=== PATIENT | female | born 1970 | race Caucasian/White ===

== ENCOUNTER 2016-06-21 01:44 | Emergency (ER) | payer BC ==
[~2016-06-21] VITALS: Ht 157.5 cm; Wt 61.8 kg
[~2016-06-21 01:44] MED LIST: NO HOME MEDICATIONS
[2016-06-21 01:47] VITALS: TEMP 98
[2016-06-21] MEDS ORDERED: ZOLOFT 100MG100 MG PO (01:50)
[2016-06-21] MEDS ORDERED: HCTZ12.5TAB PO (01:50)
[2016-06-21] MEDS ORDERED: NORCO 325 MG-51 TAB PO (02:45)
[2016-06-21 03:10] VITALS: BP 168/84; PULSE 79
== END 2016-06-21 03:10 | disposition home or self-care (01) ==
LOC: COL.ER 01:44
DX: S60.221A Contusion of right hand, initial encounter (principal); S63.501A Unspecified sprain of right wrist, initial encounter; S60.511A Abrasion of right hand, initial encounter; S60.412A Abrasion of right middle finger, initial encounter; S60.414A Abrasion of right ring finger, initial encounter; S60.416A Abrasion of right little finger, initial encounter; X50.0XXA Overexertion from strenuous movement or load, initial encounter; Y93.K1 Activity, walking an animal; Y92.009 Unspecified place in unspecified non-institutional (private) residence as the place of occurrence of the external cause

== ENCOUNTER 2017-10-14 13:38 | Emergency (ER) | payer BC, OTHER ==
[~2017-10-14] VITALS: Ht 157.5 cm; Wt 61.4 kg
[~2017-10-14 13:38] MED LIST changes: +HCTZ12.5TAB PO; +NORCO 325 MG-51 TAB PO; +ZOLOFT 100MG100 MG PO
[2017-10-14 13:40] VITALS: BP 166/85; TEMP 98.1
[2017-10-14 16:55] VITALS: PULSE 63
== END 2017-10-14 16:56 | disposition home or self-care (01) ==
LOC: COL.ER 13:38
DX: S80.12XA Contusion of left lower leg, initial encounter (principal); I10 Essential (primary) hypertension; F41.9 Anxiety disorder, unspecified; F17.210 Nicotine dependence, cigarettes, uncomplicated; W22.8XXA Striking against or struck by other objects, initial encounter; Y92.59 Other trade areas as the place of occurrence of the external cause

== ENCOUNTER 2019-05-03 13:47 | Emergency (ER) | payer BC ==
[~2019-05-03] VITALS: Ht 157.5 cm; Wt 63.6 kg
[2019-05-03 14:24] VITALS: BP 109/55; TEMP 98.2
[2019-05-03] MEDS ORDERED: SYNTHROID0.125 MG/T PO (14:24)
[2019-05-03 15:30] VITALS: PULSE 82
== END 2019-05-03 15:45 | disposition home or self-care (01) ==
LOC: COL.ER 13:47
DX: S92.402A Displaced unspecified fracture of left great toe, initial encounter for closed fracture (principal); E03.9 Hypothyroidism, unspecified; F32.9 Major depressive disorder, single episode, unspecified; Z90.710 Acquired absence of both cervix and uterus; W06.XXXA Fall from bed, initial encounter; Y92.009 Unspecified place in unspecified non-institutional (private) residence as the place of occurrence of the external cause